=== PATIENT | female | born 1995 | race African-American/Black ===

== ENCOUNTER 2019-03-22 10:52 | Emergency (ER) | payer BC ==
--- NOTE | 2019-03-22 11:58 | ER Document Report ---
HPI - HPI Patient complains to provider of: Vaginal spotting Time Seen by Provider: 03/22/19 11:41 Onset: This morning Onset/Duration: Sudden Quality of pain: No pain Pain Level: Denies Context: 23-year-old female presents emergency department with reports of vaginal s potting for the past month. Reports she recently received her Depo-Provera injection after not having it for 2 years. She reports she has been spotting since that time. She reports this morning when she woke up she noted a blood clot. Patient is worried she had a miscarriage. Denies pain fever vomiting diarrhea. She reports she had the Depo done by the health department and they did a Pap smear and checked for STDs. She reports she is not been sexually active since that time. Denies vaginal discharge. She reports she is worried that the clot she noted this morning was a miscarriage. She reports she is never been . Associated Symptoms: None Exacerbated by: Denies Relieved by: Denies Similar symptoms previously: No Recently seen / treated by doctor: No Past Medical History - General Information source: Patient Last Menstrual Period: depo - Social History Smoking Status: Never Smoker Frequency of alcohol use: Rare Drug Abuse: None Lives with: Family Family History: None Patient has suicidal ideation: No Patient has homicidal ideation: No - Medical History Medical History: Negative Surgical Hx: Negative Vertical Provider Document - CONSTITUTIONAL Agree With Documented VS: Yes Exam Limitations: No Limitations General Appearance: WD/WN, No Apparent Distress - HEENT HEENT: Atraumatic, Normocephalic - NECK Neck: Lymphadenopathy-Right - RESPIRATORY Respiratory: Breath Sounds Normal, No Respiratory Distress - CARDIOVASCULAR Cardiovascular: Regular Rate - GI/ABDOMEN Gastrointestinal: Abdomen Soft, Abdomen Non-Tender - BACK Back: negative: CVA Tenderness-Right, CVA Tenderness-Left - MUSCULOSKELETAL/EXTREMETIES Musculoskeletal/Extremeties: CRUZ PECK - NEURO Level of Consciousness: Awake, Alert, Appropriate - DERM Integumentary: Warm, Dry Course - Re-evaluation Re-evalutation: 03/22/19 11:59 23-year-old female presents with vaginal spotting for the past month and noticed a clot this morning upon waking. She is worried that she may have had a miscarriage. Discussed congealed blood with patient. Will do serum hCG for patient's peace of mind. She is not having any type of abdominal pain pain with void no other symptoms such as fever vomiting diarrhea. 03/22/19 12:01 HCG Neg, other labs unremarkable. Patient denies abdominal pain. Instructed on negative hCG. Patient is scheduled for a repeat visit with health department in March. 03/22/19 14:07 Laboratory 03/22/19 03/22/19 03/22/19 11:54 11:54 11:54 WBC 4.6 RBC 4.20 Hgb 13.1 Hct 37.9 MCV 90 MCH 31.3 MCHC 34.7 RDW 12.9 Plt Count 262 Lymph % (Auto) 49.2 H [place] % (Auto) 6.6 Eos % (Auto) 5.0 Baso % (Auto) 0.8 Absolute Neuts (auto) 1.8 Absolute Lymphs (auto) 2.3 Absolute Monos (auto) 0.3 Absolute Eos (auto) 0.2 Absolute Basos (auto) 0.0 Seg Neutrophils % 38.4 L Sodium 138.8 Potassium 4.2 Chloride 105 Carbon Dioxide 25 Anion Gap 9 BUN 11 Creatinine 0.65 Est GFR ( Amer) > 60 Est GFR (MDRD) Non-Af > 60 Glucose 86 Calcium 9.2 Total Bilirubin 0.7 Direct Bilirubin 0.0 Neonat Total Bilirubin Not Reportable Neonat Direct Bilirubin Not Reportable Neonat Indirect Bili Not Reportable AST 27 ALT 16 Alkaline Phosphatase 39 Total Protein 7.4 Albumin 4.3 Serum HCG, Qual NEGATIVE Urine Color Urine Appearance Urine pH Ur Specific [place] Urine Protein Urine Glucose (UA) Urine Ketones Urine Blood Urine Nitrite Urine Bilirubin Urine Urobilinogen Ur Leukocyte Esterase Urine WBC (Auto) Urine RBC (Auto) Squamous Epi Cells Auto Urine Mucus (Auto) Urine Ascorbic Acid 03/22/19 11:54 WBC RBC Hgb Hct MCV MCH MCHC RDW Plt Count Lymph % (Auto) [place] % (Auto) Eos % (Auto) Baso % (Auto) Absolute Neuts (auto) Absolute Lymphs (auto) Absolute Monos (auto) Absolute Eos (auto) Absolute Basos (auto) Seg Neutrophils % Sodium Potassium Chloride Carbon Dioxide Anion Gap BUN Creatinine Est GFR ( Amer) Est GFR (MDRD) Non-Af Glucose Calcium Total Bilirubin Direct Bilirubin Neonat Total Bilirubin Neonat Direct Bilirubin Neonat Indirect Bili AST ALT Alkaline Phosphatase Total Protein Albumin Serum HCG, Qual Urine Color STRAW Urine Appearance CLEAR Urine pH 6.0 Ur Specific [place] 1.011 Urine Protein NEGATIVE Urine Glucose (UA) NEGATIVE Urine Ketones NEGATIVE Urine Blood LARGE H Urine Nitrite NEGATIVE Urine Bilirubin NEGATIVE Urine Urobilinogen NEGATIVE Ur Leukocyte Esterase NEGATIVE Urine WBC (Auto) 1 Urine RBC (Auto) 0 Squamous Epi Cells Auto 2 Urine Mucus (Auto) RARE Urine Ascorbic Acid NEGATIVE - Vital Signs Vital signs: Temp Pulse Resp BP Pulse Ox 98.4 F 69 16 125/80 100 03/22/19 11:07 03/22/19 11:07 03/22/19 11:07 03/22/19 11:07 03/22/19 11:07 - Laboratory Result Diagrams: 03/22/19 11:54 03/22/19 11:54 Discharge - Discharge Clinical Impression: Vaginal spotting Condition: Stable Disposition: HOME, SELF-CARE Additional Instructions: *You have been evaluated for vaginal spotting *Your test was negative *Follow up with the health department for recheck as scheduled *Return to ED for worsening condition, changes, needs, concerns, heavy bleeding Referrals: RYAN DOSHI MD [EMERITUS] - Follow up as needed
[2019-03-22 12:19] LABS: ABSOLUTE EOSINOPHILS # (AUTO) 0.2 10^3/uL (0.0-0.6); ABSOLUTE LYMPHOCYTES (AUTO) 2.3 10^3/uL (0.5-4.7); ABSOLUTE MONOCYTES (AUTO) 0.3 10^3/uL (0.1-1.4); ABSOLUTE NEUT (AUTO) 1.8 10^3/uL (1.7-8.2); BASOPHILS % (AUTO) 0.8 % (0-2); HEMATOCRIT 37.9 % (36.0-47.0); HEMOGLOBIN 13.1 g/dL (12.0-15.5); LYMPHOCYTES % (AUTO) 49.2 % (13-45); MEAN CORPUSCULAR HEMOGLOBIN 31.3 pg (27.0-33.4); MEAN CORPUSCULAR HGB CONC 34.7 g/dL (32.0-36.0); MEAN CORPUSCULAR VOLUME 90 fl (80-97); MONOCYTES % (AUTO) 6.6 % (3-13); PLATELET COUNT 262 10^3/uL (150-450); RED CELL DISTRIBUTION WIDTH 12.9 % (11.5-14.0); SEGMENTED NEUTROPHILS % (AUTO) 38.4 % (42-78); TOTAL CELLS COUNTED % (AUTO) 100 %; WHITE BLOOD COUNT 4.6 10^3/uL (4.0-10.5)
[2019-03-22 12:21] LABS: APPEARANCE,URINE CLEAR; BILIRUBIN,URINE NEGATIVE (NEGATIVE); COLOR,URINE STRAW; GLUCOSE, URINE NEGATIVE (NEGATIVE); KETONES,URINE NEGATIVE (NEGATIVE); LEUKOCYTE ESTERASE,URINE NEGATIVE (NEGATIVE); NITRITE,URINE NEGATIVE (NEGATIVE); PROTEIN,URINE NEGATIVE (NEGATIVE); URINE SPECIFIC GRAVITY 1.011; UROBILINOGEN,URINE NEGATIVE mg/dL (<2.0)
[2019-03-22 12:40] LABS: ALBUMIN 4.3 g/dL (3.5-5.0); ALKALINE PHOSPHATASE 39 U/L (38-126); ANION GAP 9 (5-19); ASPARTATE AMINO TRANSFERASE 27 U/L (14-36); BILIRUBIN,TOTAL 0.7 mg/dL (0.2-1.3); BLOOD UREA NITROGEN 11 mg/dL (7-20); CALCIUM 9.2 mg/dL (8.4-10.2); CARBON DIOXIDE 25 mmol/L (22-30); CHLORIDE 105 mmol/L (98-107); GLUCOSE 86 mg/dL (75-110); POTASSIUM 4.2 mmol/L (3.6-5.0); TOTAL PROTEIN 7.4 g/dL (6.3-8.2)
[2019-03-22 13:35] VITALS: BP 122/78
== END 2019-03-22 13:35 | disposition home or self-care (01) ==
LOC: ER 10:52
DX: N93.9 Abnormal uterine and vaginal bleeding, unspecified (principal)
CPT/HCPCS: 36415; 80053; 81001; 84703; 85025; 99284